=== PATIENT | male | born 1955 ===

== ENCOUNTER 2020-04-07 17:31 | Emergency (ER) | payer SELFPAY ==
[~2020-04-07] VITALS: Ht 167.6 cm; Wt 80.0 kg
[2020-04-07 17:34] VITALS: BP 136/92
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
--- NOTE | 2020-04-07 17:58 | NUR ---
PT TRYING TO GRAB THIS RN, WHEN ASKED TO NOT GRAB AT STAFF PT STATES "F YOU, HOW ABOUT THAT? F ALL YOU." PT REFUSING TO LAY ON BACK TO PROTECT C-SPINE, PT ALSO TRYING TO TAKE C-COLLAR OFF.
--- NOTE | 2020-04-07 18:10 | NUR ---
PT REFUSING TO ALLOW THIS RN TO PUT C-COLLAR BACK ON AFTER PT TOOK IT OFF. PT TO CT VIA DRAGAN.
--- NOTE | 2020-04-07 18:51 | NUR ---
PT CONTINUING TO USE CURSE WORDS AT THIS RN, PT STATES "YOU DON'T FING TAKE CARE OF ME, I NEED YOU IN HERE ALL THE FLA NENA TIME". PT PROVIDED BLANKETS, WILL CONTINUE TO MONITOR.
[2020-04-07 19:03] LABS: MEAN CORPUSCULAR HEMOGLOBIN 33.3 pg (27.5-34.5); MEAN CORPUSCULAR HGB CONC 33.5 g/dL (33.2-36.2); MEAN PLATELET VOLUME 6.4 fL (7.4-10.4); PLATELET COUNT 156 x10^3/uL (130-400); RED BLOOD COUNT 4.41 x10^6/uL (4.38-5.82); RED CELL DISTRIBUTION WIDTH 19.7 % (9.4-14.8)
[2020-04-07 19:13] LABS: ALANINE AMINOTRANSFERASE 51 U/L (12-78); ALBUMIN 3.7 g/dL (3.4-5.0); ANION GAP 9 mmol/L (5-15); CALCIUM 8.1 mg/dL (8.5-10.1); CHLORIDE 110 mmol/L (98-107); CREATININE 0.86 mg/dL (0.7-1.3)
[2020-04-07 19:18] LABS: ALKALINE PHOSPHATASE 83 U/L (45-117); BILIRUBIN,TOTAL 0.7 mg/dL (0.2-1.0); TOTAL PROTEIN 7.9 g/dL (6.4-8.2)
--- NOTE | 2020-04-07 19:20 | NUR ---
Covering primary for break, pt resting, eyes closed. RR equal and unlabored.
--- NOTE | 2020-04-07 19:25 | NUR ---
EMT at bedside irrigating head wound.
[2020-04-07 19:40] LABS: MD YES
[2020-04-07 19:46] LABS: BANDS%(MANUAL) 2 % (0-7); EOS#(MANUAL) 0.05 x10^3/uL (0.0-0.4); EOS% (MANUAL) 1 % (1-7); LYMPH#(MANUAL) 2.14 x10^3/uL (1-3.4); LYMPHS% (MANUAL) 42 % (22-44); MONOS#(MANUAL) 0.51 x10^3/uL (0.3-2.7); MONOS% (MANUAL) 10 % (2-9); REACTIVE LYMPHS # (MANUAL) 0.15 x10^3/uL (0-0); REACTIVE LYMPHS % (MANUAL) 3 % (0-0); SEG#(MANUAL) 2.14 x10^3/uL (1.8-6.8); SEGS% (MANUAL) 42 % (42-75)
[2020-04-07] MEDS ORDERED: NEOSPORIN OINT. PKT 1 PACKET ONE (19:47)
[2020-04-07 19:55] LABS: <PLATELET ESTIMATE> ADEQUATE; <PLT MORPHOLOGY> NORMAL PLT MORPH
[2020-04-07 19:56] LABS: ANISOCYTOSIS 1+
[2020-04-07] MEDS ORDERED: POTASSIUM CHLORIDE 20 MEQ TAB.ER.PRT ONE (19:58)
[2020-04-07] MEDS ORDERED: POTASSIUM CHLORIDE 20 MEQ TAB.ER.PRT PO ONE (20:00)
[2020-04-07] MEDS ORDERED: PLEASE ENTER ALLERGIES MC SCH (20:00)
--- NOTE | 2020-04-07 20:06 | NUR ---
PT RESTING IN [facility], MEDICATED PER EMAR, REFUSING ALL MONITORING AT THIS TIME. WILL CONTINUE TO MONITOR.
--- NOTE | 2020-04-07 20:45 | NUR ---
PT RESTING IN GURNEY WITH EYES CLOSED, NADN AT THIS TIME, PT STILL REFUSING ALL MONITORING, BLANKET PROVIDED.
--- NOTE | 2020-04-07 20:50 | NUR ---
PT PUT ALL CLOTHES ON AND AMBULATED WITH A STEADY GAIT TO BATHROOM.
--- NOTE | 2020-04-07 21:01 | NUR ---
PT WONDERING THROUGH HALLWAY, THIS RN ASKED HIM TO PLEASE WAIT IN HIS ROOM FOR HIS D/C PAPERWORK, PT STATES "NO I AM GOING, I AM LEAVING AMA". PT CONTINUING TO WALK TO [facility]. THIS RN ASKED PT IF HE COULD SIGN AMA PAPERWORK, PT STATES "NO I AM WALKING OUT". PT AMBULATED WITH STEADY GAIT TO [facility].
== END 2020-04-07 21:04 | disposition left against medical advice (07) ==
LOC: ED 20:40
DX: S09.90XA Unspecified injury of head, initial encounter (principal); F10.229 Alcohol dependence with intoxication, unspecified; E87.6 Hypokalemia; G31.2 Degeneration of nervous system due to alcohol; M54.2 Cervicalgia; F17.210 Nicotine dependence, cigarettes, uncomplicated; F41.9 Anxiety disorder, unspecified; R10.31 Right lower quadrant pain; Y90.0 Blood alcohol level of less than 20 mg/100 ml
CPT/HCPCS: 36415; 70450; 72125; 80053; 80320; 85025; 99285; 99406; G0480